=== PATIENT | female | born 1985 | race Caucasian/White ===

== ENCOUNTER 2017-05-11 00:47 | Inpatient (IN) | payer OTHER ==
[~2017-05-11] VITALS: Ht 167.6 cm; Wt 87.8 kg
[2017-05-11] VITALS (7 sets, daily range): BP systolic 104–135; BP diastolic 59–79; PULSE 68–81; RESP 16–18; Ht 167.6 cm; Wt 87.8 kg
[~2017-05-11 00:47] MED LIST: NO MEDS
[2017-05-11] MEDS ORDERED: PRENAT PO (01:15)
[2017-05-11] MEDS ORDERED: LACTATED RINGER'S 1,000 ML IV SCH (01:15)
[2017-05-11] MEDS ORDERED: LACTATED RINGER'S 1,000 ML IV PRN (01:20)
[2017-05-11] MEDS ORDERED: IBUPROFEN 600 MG TAB PO PRN (01:30)
[2017-05-11] MEDS ORDERED: MISOPROSTOL 200 MCG TAB PR PRN ×2 (01:30→06:30)
[2017-05-11] MEDS ORDERED: BUTORPHANOL 2 MG INJ IV PRN ×2 (01:30)
[2017-05-11] MEDS ORDERED: AZITHROMYCIN 500MG/NS (PMX) 250 ML IVPB ONE (01:30)
[2017-05-11] MEDS ORDERED: OXYTOCIN 30 UNITS/LR 500 ML IV SCH ×2 (01:30)
[2017-05-11] MEDS ORDERED: LIDOCAINE 1% (MPF) 30 ML INJ INJ PRN (01:30)
[2017-05-11] MEDS ORDERED: ACETAMINOPHEN/CODEINE #3 TAB PO PRN (01:30)
[2017-05-11] MEDS ORDERED: METHYLERGONOVINE 0.2 MG INJ IM PRN ×2 (01:30→06:30)
[2017-05-11] MEDS ORDERED: OXYTOCIN 30 UNITS/LR 500 ML IV PRN ×2 (01:30→06:30)
[2017-05-11] MEDS ORDERED: CARBOPROST 250 MCG INJ IM PRN ×2 (01:30→06:30)
[2017-05-11 02:02] LABS: ADD SCAN DIFF NO
--- NOTE | 2017-05-11 02:02 | TRIAGE ---
OB Triage Datetime Report Generated by CPN: 05/11/2017 02:02 Datetime: 05/11/2017 01:40 Assessment Type: Admission Assessment Maternal Assessment Level of Consciousness: Fully Conscious DTR's/Clonus: DTRs 2+; No Clonus Headache: Denies Blurred Vision: No Respiratory Effort: Unlabored; Regular Rhythm; Equal Expansion Breath Sounds, Left: Clear and Equal Breath Sounds, Right: Clear and Equal Nausea/Vomiting: Denies RUQ Epigastric Pain: Denies Facial Edema: None Fall Risk Assessment History of Falling: (0) No Secondary Diagnosis: (0) No Ambulatory Aid: (0) Bedrest/Nurse Assist Gait: (0) Normal/Bedrest/Immobile Mental Status: (0) Oriented to Own Ability Datetime: 05/11/2017 01:34 Time of Arrival: 05/11/2017 01:34 EGA: 38.3 Arrived By: Stretcher Arrived From: Other Unit in Hospital Datetime: 05/11/2017 01:10 Stage of : OB Triage Datetime: 05/11/2017 01:02 EGA: 38.3 Datetime: 05/11/2017 01:00 Time of Arrival: 05/11/2017 00:45 Arrived By: Ambulatory Arrived From: Emergency Dept Chief Complaint: SROM @0000 CLEAR Movement: Present Contractions: Denies/Absent Time Contractions Began: 05/11/2017 00:00 Contractions: 2-4 MINUTES Rupture of Membranes: Ruptured Vaginal Bleeding: None Vaginal Discharge: Present Recent Sexual Intercouse: Denies Abdominal Trauma: Not Applicable Patient Complaints: Contractions; Other Time Provider Notified: 05/11/2017 01:10 Provider Notified: KIMBERLI LASSITER Initial Plan: EFM, SVE, CALL OB Datetime: 05/11/2017 00:55 Stage of : OB Triage Maternal Assessment Level of Consciousness: Fully Conscious DTR's/Clonus: DTRs 2+; No Clonus Headache: Denies Blurred Vision: No Respiratory Effort: Unlabored; Regular Rhythm; Equal Expansion Breath Sounds, Left: Clear and Equal Breath Sounds, Right: Clear and Equal Nausea/Vomiting: Denies RUQ Epigastric Pain: Denies Lower Extremities Edema: None Degree: None Upper Extremities Edema: None Degree: None Facial Edema: None Temperature Route: AXILLARY AND ORAL Fall Risk Assessment History of Falling: (0) No Secondary Diagnosis: (0) No Ambulatory Aid: (0) Bedrest/Nurse Assist IV Therapy: (0) No Gait: (0) Normal/Bedrest/Immobile Mental Status: (0) Oriented to Own Ability Fall Score: 0 Fall Risk Score Definition: No Risk: No action required Pain Assessment Pain Scale: 5 Pain Presence: Intermittent Pain Type: Contraction Pain Location: Abdomen Pain Goal: 5 Pain Relief Measures: Comfort Measures Vaginal Exam Dilatation (cms): 2.0 Effacement (%): 60 Station: -3 Exam By: Enma JAIN Membrane Status: Ruptured Membranes Ruptured Date/Time: 05/11/2017 00:00 Membranes Rupture Method: Spontaneous Amniotic Fluid Color: Clear Amniotic Fluid Amount: Small Amniotic Fluid Odor: None Vaginal Bleeding: None Pool: Positive Datetime: 05/11/2017 00:50 Labor Evaluation Contraction Comments: APPLIED Heart Rate Comments: APPLIED
[2017-05-11 02:04] LABS: BASOPHILS % 0.1 % (0.0-2.0); EOSINOPHILS % 0.1 % (0.0-7.0); HEMOGLOBIN 11.8 g/dl (12.0-16.0); LYMPHOCYTES # 1.3 10^3/ul (0.8-2.9); LYMPHOCYTES % 13.9 % (15.0-51.0); MEAN CORPUSCULAR HEMOGLOBIN 28.5 pg (29.0-33.0); MEAN CORPUSCULAR HGB CONC 32.8 g/dl (32.0-37.0); MEAN PLATELET VOLUME 10.2 fl (7.4-10.4); MONOCYTE # 0.8 10^3/ul (0.3-0.9); MONOCYTES % 8.6 % (0.0-11.0); NEUTROPHIL # 7.1 10^3/ul (1.6-7.5); PLATELET COUNT 241 10^3/UL (140-415); RED BLOOD COUNT 4.14 10^6/ul (4.20-5.40); RED CELL DISTRIBUTION WIDTH 15.2 % (11.5-14.5); WHITE BLOOD COUNT 9.4 10^3/ul (4.8-10.8)
[2017-05-11 02:26] LABS: ADD UMIC YES; UR AMORPHOUS CRYSTAL FEW /HPF (NONE SEEN); UR ASCORBIC ACID NEGATIVE (NEGATIVE); UR BACTERIA FEW /HPF (NONE SEEN); UR BILIRUBIN (Dip) NEGATIVE (NEGATIVE); UR BLOOD (Dip) 3+ mg/dL (NEGATIVE); UR CLARITY CLOUDY (CLEAR); UR COLOR YELLOW (YELLOW); UR GLUCOSE (Dip) 1+ mg/dL (NEGATIVE); UR KETONES (Dip) NEGATIVE (NEGATIVE); UR LEUKOCYTE ESTERASE (Dip) NEGATIVE Leu/ul (NEGATIVE); UR NITRITE (Dip) NEGATIVE (NEGATIVE); UR RBC 53 /HPF (0-5); UR SPECIFIC GRAVITY (Dip) 1.004 (1.003-1.030); UR SQUAMOUS EPITHELIAL CELL MANY /HPF (FEW); UR TOTAL PROTEIN (Dip) 2+ mg/dl (NEGATIVE); UR UROBILINOGEN (Dip) NEGATIVE (NEGATIVE)
[2017-05-11 02:32] LABS: INR 1.05; PARTIAL THROMBOPLASTIN TIME 29.9 Sec (25.0-35.0); PROTIME 13.7 Sec (12.2-14.2); PT RATIO 1.1
[2017-05-11] MEDS ORDERED: MINERAL OIL LIGHT 10 ML VIAL TOP ONE (04:30)
--- NOTE | 2017-05-11 05:45 | LDN ---
Date/Time of Note Date/Time of Note DATE: 05/11/17 TIME: 05:39 Delivery Summary done by DR Vargas 2nd degree perineal laceration X2 tight nuchal cord [id number] Weeks of Gestation 38w3d Placenta Delivered: Spontaneously Meconium: none Episiotomy: No Perineal laceration: 2 Laceration repair: 00ch gut repaired by DR Borjas Anesthesia type: Local Sponge & Needle done & correct: Yes All needle counts correct: Yes Any foreign bodies felt in the: No Problems: Delivery Information Sex Infant Sex: male Apgars 1 Minute: 7 5 Minute: 9 Suctioning Nose & mouth suctioned at joanie: Yes Umbilical Cord Umbilical cord with: 3 Vessels Cord presentations: nuchal cord Nuchal cord present X: 2 Cord Blood was obtained: Yes Mother & Baby Disposition Disposition Mom & Baby to Maternity; Good: Yes Mom transferred to: Other () Baby to NICU: No KIMBERLI BORJAS MD May 11, 2017 05:45
--- NOTE | 2017-05-11 05:54 | HP ---
Date/Time of Note Date/Time of Note DATE: 05/11/17 TIME: 05:45 OB - History Hx of Present Free Text/Dictation 31y,o at 38w3d came to triage in labor with srom u. q2-3min ve 2cm coughing with low grade fever azithromycin given GBS status not known ampiciliin ordered admitted for expectant management and poss augmentation if u.c slowed down Chief Complaint: srom and uc Estimated Due Date: May 22, 2017 : 3 Para: 2 Spontaneous : 0 Therapeutic : 0 Care: Good Care Ultrasounds: Normal mid trimester US Obstetrical Complications: None Medical Complications: None Past Family/Social History * Past Medical, Surgical, Family and Obstetric Histories reviewed from chart. Blood Type: O+ Rubella: immune RPR/VDRL: Negative GBS Status: Unknown HBsAG: Negative OB Admission Exam Vital Signs Vital Signs Vital Signs Date Time Temp Pulse Resp B/P Pulse Ox O2 Delivery O2 Flow Rate FiO2 05/11/17 01:13 100.1 81 18 135/77 Room Air Physical Exam HEENT: WNL Heart: Rhythm Normal Lungs: Clear, Equal Abdomen: WNL Extremities: Normal Reflexes: Normal Cervical Dilatation: 2cm Membranes: Ruptured Amniotic Fluid: Clear Heart Rate: 150's Accelerations: Accelerations Present Decelerations: No Decelerations Varibility: Moderate Contractions on Admission: < 5 Minutes Apart Intensity: Moderate Last 72 hours Lab Results CBC & BMP 05/11/17 01:40 OB Assessment/Plan Reason for admission: active labor, rupture of membranes Plan: Expectant Management KIMBERLI BORJAS MD May 11, 2017 05:54
[2017-05-11] MEDS ORDERED: WITCH HAZEL/GLYCERIN PAD PR PRN (06:30)
[2017-05-11] MEDS ORDERED: OXYCODONE/ASPIRIN (4.88/325) TAB PO PRN ×2 (06:30)
[2017-05-11] MEDS ORDERED: BENZOCAINE 20% 56 ML SPRAY TOP PRN (06:30)
[2017-05-11] MEDS ORDERED: ZOLPIDEM 5 MG TAB PO PRN (06:30)
[2017-05-11] MEDS ORDERED: LANOLIN 7 GM TUBE TOP PRN (06:30)
[2017-05-11] MEDS: SENNA/DOCUSATE NA (8.6MG/50MG) TAB PO SCH ×2 (10:03→21:23)
[2017-05-11] MEDS: IBUPROFEN 600 MG TAB PO SCH ×2 (12:58→18:34)
[2017-05-11 15:00] LABS: ADD SCAN DIFF NO
[2017-05-11 15:02] LABS: BASOPHILS % 0.2 % (0.0-2.0); HEMATOCRIT 34.7 % (37.0-47.0); HEMOGLOBIN 11.6 g/dl (12.0-16.0); LYMPHOCYTES # 1.1 10^3/ul (0.8-2.9); LYMPHOCYTES % 9.2 % (15.0-51.0); MEAN CORPUSCULAR HEMOGLOBIN 29.1 pg (29.0-33.0); MEAN CORPUSCULAR HGB CONC 33.4 g/dl (32.0-37.0); MEAN PLATELET VOLUME 9.8 fl (7.4-10.4); MONOCYTE # 0.9 10^3/ul (0.3-0.9); MONOCYTES % 7.3 % (0.0-11.0); NEUTROPHILS % 82.7 % (39.0-77.0); PLATELET COUNT 193 10^3/UL (140-415); RED BLOOD COUNT 3.99 10^6/ul (4.20-5.40); RED CELL DISTRIBUTION WIDTH 15.4 % (11.5-14.5)
[2017-05-11] MEDS: CEFAZOLIN 2 GM/50 ML (PMX) 50 ML IVPB SCH ×2 (15:13→23:22)
[2017-05-12] MEDS: IBUPROFEN 600 MG TAB PO SCH ×5 (00:31→23:22)
[2017-05-12] MEDS ORDERED: AZITHROMYCIN 500MG/NS (PMX) 250 ML IVPB SCH (01:30)
[2017-05-12] MEDS ORDERED: AZITHROMYCIN 250 MG in SOD CHLORIDE 0.9% 250 ML IVPB SCH (02:00)
[2017-05-12] MEDS ORDERED: AZITHROMYCIN 250 MG in NS 250 ML IVPB ONE (02:30)
[2017-05-12 04:00] VITALS: BP 106/64; PULSE 70; RESP 18
[2017-05-12] MEDS: CEFAZOLIN 2 GM/50 ML (PMX) 50 ML IVPB SCH (05:37)
[2017-05-12 07:33] LABS: ADD SCAN DIFF NO
[2017-05-12 07:51] LABS: BASOPHILS % 0.3 % (0.0-2.0); EOSINOPHILS # 0.1 10^3/ul (0.0-0.5); EOSINOPHILS % 0.5 % (0.0-7.0); HEMATOCRIT 34.5 % (37.0-47.0); HEMOGLOBIN 11.1 g/dl (12.0-16.0); LYMPHOCYTES # 1.6 10^3/ul (0.8-2.9); LYMPHOCYTES % 17.5 % (15.0-51.0); MEAN CORPUSCULAR HEMOGLOBIN 28.4 pg (29.0-33.0); MEAN CORPUSCULAR HGB CONC 32.2 g/dl (32.0-37.0); MEAN CORPUSCULAR VOLUME 88.2 fl (82.0-101.0); MEAN PLATELET VOLUME 10.6 fl (7.4-10.4); MONOCYTE # 0.8 10^3/ul (0.3-0.9); MONOCYTES % 8.6 % (0.0-11.0); NEUTROPHIL # 6.7 10^3/ul (1.6-7.5); NEUTROPHILS % 72.1 % (39.0-77.0); PLATELET COUNT 198 10^3/UL (140-415); RED BLOOD COUNT 3.91 10^6/ul (4.20-5.40); RED CELL DISTRIBUTION WIDTH 15.9 % (11.5-14.5); WHITE BLOOD COUNT 9.3 10^3/ul (4.8-10.8)
[2017-05-12 08:00] VITALS: BP 108/67; PULSE 67; RESP 18
[2017-05-12] MEDS: SENNA/DOCUSATE NA (8.6MG/50MG) TAB PO SCH ×2 (08:59→21:25)
--- NOTE | 2017-05-12 09:49 | PN ---
Date/Time of Note Date/Time of Note DATE: 05/12/17 TIME: 09:46 OB Subjective Subjective Subjective passing flatus no c/o OB Objective Objective Objective vss afebrile fundus firm lochia min calf no tenderness OB Assessment/Plan Other Assessment: post vaginal delivery #1 Other plan: discharge home in am KIMBERLI BORJAS MD May 12, 2017 09:49
[2017-05-12 16:15] VITALS: BP 116/66; PULSE 74; RESP 19
[2017-05-12 20:13] VITALS: BP 105/55; PULSE 79; RESP 18
[2017-05-13 04:00] VITALS: BP 96/57; PULSE 71; RESP 18
[2017-05-13] MEDS: IBUPROFEN 600 MG TAB PO SCH ×3 (05:51→18:12)
[2017-05-13 08:40] VITALS: BP 114/73; PULSE 67; RESP 16
[2017-05-13] MEDS ORDERED: DIPHTH/TET/ACEL PERTUSS (ADULT) 0.5 ML VIAL IM* ONE (09:00)
[2017-05-13] MEDS: SENNA/DOCUSATE NA (8.6MG/50MG) TAB PO SCH (09:41)
[2017-05-13 17:16] VITALS: BP 102/58; PULSE 73; RESP 14
--- NOTE | 2017-05-13 17:43 | PD.PPDC ---
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 Diagnosis Final Diagnosis: s/p normal vaginal delivery Condition Patient Condition: Stable Diet Diet: Resume Regular Diet Activity/Restrictions Activity: May Shower Restrictions: No Lifting No Sexual Activity Nothing in the Vagina No [place] No Tampons, douche Follow-up Follow-up with Physician: 6, Week/Weeks Return to clinic for BORDER POLICE Instructions: Fever greater than 101 Chills Worsening abdominal pain Excessive Vaginal Bleeding More than 2 pads per hour Unable to tolerate diet OB Instructions: Breast Tenderness Depression Blurried Vision Headache KIMBERLI BORJAS MD May 13, 2017 17:43
--- NOTE | 2017-05-13 17:59 | PD.PPDC ---
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
--- NOTE | 2017-05-13 18:09 | DS ---
Date/Time of Note Date/Time of Note DATE: 05/13/17 TIME: 18:08 Obstetrical Discharge Record Final Diagnosis Final Diagnosis: Term delivered Vaginal Delivery Obstetrical Delivery: Spontaneous, Laceration, Repaired Complications Augmentation: No Induction: No Rupture of Membranes: No Condition on Discharge Physical Assessment Last Vitals: vss affebrile Voiding: Yes Bowel Movement: Yes Fundus: Firm Calf Tenderness: No Patient Condition: Stable KIMBERLI BORJAS MD May 13, 2017 18:09
== END 2017-05-13 19:06 | disposition home or self-care (01) | DRG 775 ==
LOC: OBT 00:47 → L-D 00:48 → OBT 01:26 → L-D 01:27 → PP1 06:21
PROVIDERS: ADMIT Obstetrics & Gynecology; ATTEND Obstetrics & Gynecology
PROC: 10E0XZZ Delivery of Products of Conception, External Approach (ICD-10-PCS; principal; 2017-05-11)
PROC: 0KQM0ZZ Repair Perineum Muscle, Open Approach (ICD-10-PCS; 2017-05-11)
DX: O69.1XX0 Labor and delivery complicated by cord around neck, with compression, not applicable or unspecified (principal); O70.1 Second degree perineal laceration during delivery; Z3A.38 38 weeks gestation of pregnancy; Z37.0 Single live birth
CPT/HCPCS: 81001; 85025; 85610; 85730; 86592; 86900; 86901; 87340; 88304; 90715; 99464; G0463; J0456; J0595; J0690; J2590; J7050; J7120